=== PATIENT | male | born 1955 | race Caucasian/White ===

== ENCOUNTER 2025-07-28 22:58 | Inpatient (IN) | payer MEDICARE, SELFPAY ==
[~2025-07-28] VITALS: Ht 162.6 cm; Wt 81.8 kg
[2025-07-29 00:43] LABS: BASO # 0.1 10^3/uL (0.0-0.2); BASO % 0.4 % (0.0-1.0); EOS # 0.0 10^3/uL (0.0-0.5); EOS % 0.2 % (0.0-3.0); LYMPH # 2.1 10^3/uL (1.5-5.0); LYMPH % 16.4 % (24.0-44.0); MONO # 0.6 10^3/uL (0.0-0.8); MONO % 4.8 % (2.0-8.0); NEUTROPHILS # 10.1 10^3/uL (1.5-8.5); NEUTROPHILS % 77.9 % (36.0-66.0); PLATELET COUNT, AUTOMATED 264 10^3/uL (150-450)
[2025-07-29 01:11] LABS: CALCIUM LEVEL 8.9 MG/DL (8.3-10.6); CARBON DIOXIDE LEVEL 23 MMOL/L (20-31); CHLORIDE LEVEL 105 MMOL/L (98-107); CREATININE FOR GFR 0.86 MG/DL (0.70-1.30); GLOMERULAR FILTRATION RATE > 90.0 (>49); POTASSIUM SERUM 4.0 MMOL/L (3.5-5.1); SODIUM LEVEL 141 MMOL/L (136-145)
[2025-07-29 02:14] LABS: ALT/SGPT 20 U/L (7.0-40); AST/SGOT 15 U/L (<34)
[2025-07-29 03:31] LABS: KETONE, URINE AUTO RFX 2+ mg/dL (NEGATIVE); LEUKOCYTE ESTERASE UR AUTO RFX NEGATIVE (NEGATIVE); MUCUS, URINE RFX SMALL (NEGATIVE); NITRITE, URINE AUTO RFX NEGATIVE (NEGATIVE); RBC, URINE AUTO RFX 0 /HPF (0-3); SQUAM EPITHELIAL CELL UR AURFX 0 /HPF (0-6); WBC, URINE AUTO RFX 0 /HPF (0-3)
[2025-07-29] MEDS ORDERED: ISOVUE-370 76% 100 ML VIAL As Ordered ONE (04:23)
[2025-07-29] MEDS: ONDANSETRON 4MG 2ML VIAL IV ONE (04:26)
[2025-07-29] MEDS: MORPHINE 4 MG/ML 1 ML VIAL IV PRN ×2 (04:26→08:38)
[2025-07-29] MEDS ORDERED: GLUCAGON INJ 1 MG VIAL SC PRN (10:15)
[2025-07-29] MEDS ORDERED: DEXTROSE 50% 50 ML SYRINGE IV PRN (10:15)
[2025-07-29] MEDS ORDERED: GLUCOSE 4 GM CHEW PO PRN (10:15)
[2025-07-29] MEDS ORDERED: LOSA100T46 PO (10:25)
[2025-07-29] MEDS ORDERED: METF-839 PO (10:25)
[2025-07-29] MEDS ORDERED: HYDR12.55 PO (10:25)
[2025-07-29] MEDS ORDERED: SIMV40TA20 PO (10:25)
[2025-07-29] MEDS ORDERED: HOME MED LIST COMPLETE! XX SCH (10:25)
[2025-07-29] MEDS: KETOROLAC 30 MG/ML 1 ML VIAL IV STA (10:33)
[2025-07-29] MEDS: hydrALAZINE 20 MG/ML 1 ML VIAL IV ONE (10:35)
[2025-07-29 11:05] LABS: MAGNESIUM LEVEL 2.0 MG/DL (1.8-2.4)
[2025-07-29 12:48] VITALS: BP 148/79; TEMP 97.6; O2SAT 97
[2025-07-29 16:36] VITALS: BP 127/70; TEMP 97; O2SAT 94
[2025-07-29] MEDS: NS (Normal Saline) 0.9% 1,000 ML IV SCH (18:50)
[2025-07-29] MEDS: KETOROLAC 30 MG/ML 1 ML VIAL IV PRN (18:56)
[2025-07-29 19:49] VITALS: BP 121/67; TEMP 98.8; O2SAT 97
[2025-07-29] MEDS: ACETAMINOPHEN *IV* 1,000 MG in IV 1 EA IV ONE (22:06)
[2025-07-30] VITALS (7 sets, daily range): BP systolic 109–135; BP diastolic 66–77; TEMP 97.3–98.1; O2SAT 92–94
[2025-07-30] MEDS ORDERED: OLANZapine INTRAMUSCULAR 10MG VIAL IM ONE (02:00)
[2025-07-30 07:00] LABS: CALCIUM LEVEL 8.9 MG/DL (8.3-10.6); CARBON DIOXIDE LEVEL 25 MMOL/L (20-31); CHLORIDE LEVEL 104 MMOL/L (98-107); CREATININE FOR GFR 0.92 MG/DL (0.70-1.30); GLOMERULAR FILTRATION RATE > 90.0 (>49); MAGNESIUM LEVEL 2.0 MG/DL (1.8-2.4); POTASSIUM SERUM 4.1 MMOL/L (3.5-5.1); SODIUM LEVEL 141 MMOL/L (136-145)
[2025-07-30 07:33] LABS: PLATELET COUNT, AUTOMATED 294 10^3/uL (150-450)
[2025-07-30 08:37] LABS: ATYPICAL LYMPH 3 % (0-5); EOSINOPHILS 1 % (0-3); LYMPHOCYTES 8 % (16-44); MONOCYTES 17 % (0-5); NEUTROPHILS 56 % (28-66)
[2025-07-30 08:38] LABS: PLATELET ESTIMATE NORMAL (NORMAL)
[2025-07-30] MEDS: ENOXAPARIN 40 MG/0.4 ML SYRINGE (J1650 PER 10MG) SC SCH (11:39)
[2025-07-30] MEDS: PANTOPRAZOLE 40MG VIAL IV SCH (11:39)
[2025-07-30] MEDS: ACETAMINOPHEN *IV* 1,000 MG in IV 1 EA IV ONE (18:11)
[2025-07-30] MEDS: RAMELTEON 8 MG TAB PO SCH (21:00)
[2025-07-30] MEDS: diphenhydrAMINE 50 MG/ML VIAL IV PRN (21:52)
[2025-07-31] VITALS (14 sets, daily range): BP systolic 116–134; BP diastolic 70–77; TEMP 97.4–98.6; O2SAT 91–96
[2025-07-31 05:00] LABS: PLATELET COUNT, AUTOMATED 262 10^3/uL (150-450)
[2025-07-31 05:24] LABS: CALCIUM LEVEL 8.7 MG/DL (8.3-10.6); CARBON DIOXIDE LEVEL 27.0 MMOL/L (20-31); CHLORIDE LEVEL 106.0 MMOL/L (98-107); CREATININE FOR GFR 1.01 MG/DL (0.70-1.30); GLOMERULAR FILTRATION RATE 80.5 (>49); POTASSIUM SERUM 3.7 MMOL/L (3.5-5.1); SODIUM LEVEL 142.0 MMOL/L (136-145)
[2025-07-31] MEDS ORDERED: ENOXAPARIN 40 MG/0.4 ML SYRINGE (J1650 PER 10MG) SC SCH (09:00)
[2025-07-31] MEDS ORDERED: E-Z-PAQUE 96% w/w SUSP 176 GM BTL As Ordered ONE (12:43)
[2025-07-31] MEDS: CHLORASEPTIC SPRAY MT PRN (14:53)
[2025-07-31] MEDS: diphenhydrAMINE 50 MG/ML VIAL IV PRN (22:19)
[2025-07-31] MEDS: ACETAMINOPHEN *IV* 1,000 MG in IV 1 EA IV PRN (22:20)
[2025-08-01] VITALS (14 sets, daily range): BP systolic 123–142; BP diastolic 62–74; TEMP 97.3–97.6; O2SAT 91–97
[2025-08-01 05:50] LABS: PLATELET COUNT, AUTOMATED 253 10^3/uL (150-450)
[2025-08-01 06:16] LABS: CALCIUM LEVEL 8.6 MG/DL (8.3-10.6); CARBON DIOXIDE LEVEL 29.0 MMOL/L (20-31); CHLORIDE LEVEL 105.0 MMOL/L (98-107); CREATININE FOR GFR 0.99 MG/DL (0.70-1.30); GLOMERULAR FILTRATION RATE 82.5 (>49); POTASSIUM SERUM 3.7 MMOL/L (3.5-5.1); SODIUM LEVEL 146.0 MMOL/L (136-145)
[2025-08-01] MEDS ORDERED: MIDAZOLAM INJ 2 MG/2 ML VIAL As Ordered ONE (06:36)
[2025-08-01] MEDS ORDERED: LIDOCAINE 2% 100 MG/5 ML SDV (FOR ANES.) As Ordered ONE (06:37)
[2025-08-01] MEDS ORDERED: ROCURONIUM BROMIDE 50MG/5ML VIAL As Ordered ONE (06:37)
[2025-08-01] MEDS ORDERED: dexAMETHasone 4 MG/ML 1 ML VIAL As Ordered ONE (06:39)
[2025-08-01] MEDS ORDERED: ONDANSETRON 4MG 2ML VIAL As Ordered ONE (06:39)
[2025-08-01] MEDS ORDERED: SUCCINYLCHOLINE 100MG/5ML SYRINGE As Ordered ONE (07:46)
[2025-08-01] MEDS ORDERED: PHENYLephrine 500MCG 5ML (100MCG/ML) SYRINGE As Ordered ONE (08:06)
[2025-08-01] MEDS ORDERED: ACETAMINOPHEN 1000MG/100ML IV BAG As Ordered ONE (08:07)
[2025-08-01] MEDS ORDERED: SUGAMMADEX SODIUM 500 MG/5 ML VIAL As Ordered ONE (08:12)
[2025-08-01] MEDS ORDERED: PHENYLEPHRINE 10MG/ML 1ML VIAL As Ordered ONE (08:25)
[2025-08-01] MEDS ORDERED: GLYCOPYRROLATE INJ 0.2 MG/ML 2 ML VIAL As Ordered ONE (08:43)
[2025-08-01] MEDS ORDERED: ESMOLOL 100 MG/10 ML VIAL As Ordered ONE (09:10)
[2025-08-01] MEDS ORDERED: KETOROLAC 30 MG/ML 1 ML VIAL As Ordered ONE (09:14)
[2025-08-01] MEDS ORDERED: INDOCYANINE GREEN 25 MG VIAL As Ordered ONE (10:42)
[2025-08-01] MEDS: metroNIDAZOLE/NACL 500 MG (5 MG/ML) 100 ML BAG As Ordered ONE (11:11)
[2025-08-01] MEDS: CEFEPIME HCL 2 GM in DEXTROSE 5% (D5W) ADV/MINI-BAG 50 ML IV SCH (15:33)
[2025-08-01] MEDS: metroNIDAZOLE 500 MG in IV 1 EA IV SCH (17:16)
[2025-08-02] VITALS (23 sets, daily range): BP systolic 120–138; BP diastolic 53–65; TEMP 97.1–98.1; O2SAT 94–97
[2025-08-02] MEDS: MORPHINE 4 MG/ML 1 ML VIAL IV PRN (03:44)
[2025-08-02 05:39] LABS: PLATELET COUNT, AUTOMATED 225 10^3/uL (150-450)
[2025-08-02 06:06] LABS: CALCIUM LEVEL 7.3 MG/DL (8.3-10.6); CARBON DIOXIDE LEVEL 27 MMOL/L (20-31); CHLORIDE LEVEL 112 MMOL/L (98-107); CREATININE FOR GFR 0.80 MG/DL (0.70-1.30); GLOMERULAR FILTRATION RATE > 90.0 (>49); POTASSIUM SERUM 3.6 MMOL/L (3.5-5.1); SODIUM LEVEL 145 MMOL/L (136-145)
[2025-08-02] MEDS: KETOROLAC 30 MG/ML 1 ML VIAL IV ONE (07:30)
[2025-08-02] MEDS: ACETAMINOPHEN *IV* 1,000 MG in IV 1 EA IV ONE (07:30)
[2025-08-02] MEDS: MORPHINE 4 MG/ML 1 ML VIAL IV ONE (08:37)
[2025-08-03] VITALS (9 sets, daily range): BP systolic 135–156; BP diastolic 65–77; TEMP 97.9–99; O2SAT 94–96
[2025-08-03 05:32] LABS: PLATELET COUNT, AUTOMATED 193 10^3/uL (150-450)
[2025-08-03 06:05] LABS: CALCIUM LEVEL 7.5 MG/DL (8.3-10.6); CARBON DIOXIDE LEVEL 22 MMOL/L (20-31); CHLORIDE LEVEL 112 MMOL/L (98-107); CREATININE FOR GFR 0.67 MG/DL (0.70-1.30); GLOMERULAR FILTRATION RATE > 90.0 (>49); POTASSIUM SERUM 3.6 MMOL/L (3.5-5.1); SODIUM LEVEL 148 MMOL/L (136-145)
[2025-08-03] MEDS: LR 1,000 ML IV SCH (09:43)
[2025-08-04 03:50] VITALS: BP 127/63; TEMP 97.4; O2SAT 98
[2025-08-04 05:38] LABS: PLATELET COUNT, AUTOMATED 215 10^3/uL (150-450)
[2025-08-04 06:13] LABS: CALCIUM LEVEL 7.7 MG/DL (8.3-10.6); CARBON DIOXIDE LEVEL 25 MMOL/L (20-31); CHLORIDE LEVEL 111 MMOL/L (98-107); CREATININE FOR GFR 0.64 MG/DL (0.70-1.30); GLOMERULAR FILTRATION RATE > 90.0 (>49); POTASSIUM SERUM 3.2 MMOL/L (3.5-5.1); SODIUM LEVEL 145 MMOL/L (136-145)
[2025-08-04 07:39] VITALS: BP 122/66; TEMP 97.5; O2SAT 96
[2025-08-04] MEDS: ACETAMINOPHEN 325 MG TAB PO PRN (08:55)
[2025-08-04] MEDS: POTASSIUM CHLORIDE 10% LIQ 20MEQ/15ML UDC PO ONE (08:55)
[2025-08-04] MEDS: MIRALAX *UNIT DOSE* 17 GM PACKET PO SCH (09:00)
[2025-08-04 11:12] VITALS: BP 141/69; TEMP 98; O2SAT 95
[2025-08-04 16:28] VITALS: BP 138/69; TEMP 97.8
[2025-08-04 19:36] VITALS: BP 143/72; TEMP 97.8; O2SAT 97
[2025-08-04] MEDS: LOSARTAN 50 MG TABLET PO SCH (20:35)
[2025-08-05 04:05] VITALS: BP 146/70; TEMP 97.8; O2SAT 95
[2025-08-05 06:22] LABS: PLATELET COUNT, AUTOMATED 228 10^3/uL (150-450)
[2025-08-05 06:47] LABS: CALCIUM LEVEL 7.7 MG/DL (8.3-10.6); CARBON DIOXIDE LEVEL 27 MMOL/L (20-31); CHLORIDE LEVEL 109 MMOL/L (98-107); CREATININE FOR GFR 0.83 MG/DL (0.70-1.30); GLOMERULAR FILTRATION RATE > 90.0 (>49); POTASSIUM SERUM 3.6 MMOL/L (3.5-5.1); SODIUM LEVEL 146 MMOL/L (136-145)
[2025-08-05 07:55] VITALS: BP 149/72; TEMP 97.4; O2SAT 94
[2025-08-05 16:19] VITALS: BP 140/73; TEMP 97.5; O2SAT 97
[2025-08-05 19:34] VITALS: BP 132/63; TEMP 97.4; O2SAT 97
[2025-08-05] MEDS: traZODone 25MG PER 1/2 TABLET PO PRN (20:55)
[2025-08-05 22:59] VITALS: BP 136/74; TEMP 97.5; O2SAT 97
[2025-08-06 04:58] VITALS: BP 144/67; TEMP 97.8; O2SAT 95
[2025-08-06] MEDS: KETOROLAC 30 MG/ML 1 ML VIAL IV ONE (05:56)
[2025-08-06 08:04] LABS: PLATELET COUNT, AUTOMATED 218 10^3/uL (150-450)
[2025-08-06 08:36] LABS: CALCIUM LEVEL 7.3 MG/DL (8.3-10.6); CARBON DIOXIDE LEVEL 24 MMOL/L (20-31); CHLORIDE LEVEL 110 MMOL/L (98-107); CREATININE FOR GFR 0.64 MG/DL (0.70-1.30); GLOMERULAR FILTRATION RATE > 90.0 (>49); POTASSIUM SERUM 3.3 MMOL/L (3.5-5.1); SODIUM LEVEL 145 MMOL/L (136-145)
[2025-08-06] MEDS: SODIUM CHLORIDE 0.9% 1000 ML IV ONE (10:24)
[2025-08-06] MEDS ORDERED: KETOROLAC 30 MG/ML 1 ML VIAL IV PRN (12:00)
[2025-08-06 12:07] VITALS: BP 162/82; TEMP 98.3; O2SAT 96
[2025-08-06] MEDS ORDERED: traZODone 50 MG TAB PO PRN (12:30)
[2025-08-06] MEDS: ACETAMINOPHEN 500 MG TAB PO SCH (15:53)
[2025-08-06 19:36] VITALS: BP 121/58; TEMP 98.9; O2SAT 97
[2025-08-06 19:59] VITALS: BP 121/58
[2025-08-07 03:52] VITALS: BP 133/62; TEMP 98; O2SAT 95
[2025-08-07] MEDS ORDERED: CEFD300CAP PO (12:15)
[2025-08-07] MEDS ORDERED: MIRA33506 PO (12:15)
[2025-08-07] MEDS ORDERED: ACET-683 PO (12:15)
[2025-08-07] MEDS ORDERED: METR-265 PO (12:15)
[2025-08-07] MEDS ORDERED: CEFDINIR 300 MG CAP PO SCH (18:00)
== END 2025-08-07 13:00 | disposition home or self-care (01) | DRG 329 ==
LOC: M ED 22:58 → M ED INP 07-29 10:10 → M PCU 07-29 12:37 → M MS4PR 08-05 23:16
PROVIDERS: ADMIT Student in an Organized Health Care Education/Training Program; ATTEND Internal Medicine Nephrology
PROC: 8E0W4CZ Robotic Assisted Procedure of Trunk Region, Percutaneous Endoscopic Approach (ICD-10-PCS; 2025-08-01)
PROC: 0DB84ZZ Excision of Small Intestine, Percutaneous Endoscopic Approach (ICD-10-PCS; principal; 2025-08-01 06:18)
PROC: 0T7 Urinary System, Dilation (ICD-10-PCS; 2025-08-01 06:18)
DX: K56.50 Intestinal adhesions [bands], unspecified as to partial versus complete obstruction (principal); J69.0 Pneumonitis due to inhalation of food and vomit; K55.069 Acute infarction of intestine, part and extent unspecified; E87.0 Hyperosmolality and hypernatremia; I10 Essential (primary) hypertension; E78.5 Hyperlipidemia, unspecified; N40.1 Benign prostatic hyperplasia with lower urinary tract symptoms; K44.9 Diaphragmatic hernia without obstruction or gangrene; F17.290 Nicotine dependence, other tobacco product, uncomplicated; I16.0 Hypertensive urgency; Z79.84 Long term (current) use of oral hypoglycemic drugs; Z79.899 Other long term (current) drug therapy; N32.0 Bladder-neck obstruction; F10.10 Alcohol abuse, uncomplicated; G47.00 Insomnia, unspecified; E87.8 Other disorders of electrolyte and fluid balance, not elsewhere classified; K56.7 Ileus, unspecified